=== PATIENT | male | born 1995 | race Hispanic/Latino ===

== ENCOUNTER 2024-06-14 08:37 | Emergency (ER) | payer SELFPAY ==
[~2024-06-14] VITALS: Ht 162.6 cm; Wt 68.0 kg
[2024-06-14] MEDS ORDERED: LIDOcaine HCl 1% (Local Anesth.) 20 ML VIAL STI STA (08:44)
[2024-06-14 08:45] VITALS: BP 150/94
[2024-06-14] MEDS ORDERED: Diph, Acellular Pertussis, Tet 0.5 ML/VIAL (Tdap) SDV IM ONE (08:45)
[2024-06-14] MEDS ORDERED: POVIDONE IODINE 0.5 OZ/BTL TOP ONE (08:45)
[2024-06-14 09:00] VITALS: BP 135/94
[2024-06-14 09:15] VITALS: BP 133/87
[2024-06-14] MEDS ORDERED: CEPHALEXIN500 M1 PO (09:21)
[2024-06-14 09:37] VITALS: BP 133/87
== END 2024-06-14 10:04 | disposition home or self-care (01) | DRG 605 ==
LOC: ED 08:37
PROC: 0HQFXZZ Repair Right Hand Skin, External Approach (ICD-10-PCS; principal; 2024-06-14)
DX: S61.210A Laceration without foreign body of right index finger without damage to nail, initial encounter (principal); W27.0XXA Contact with workbench tool, initial encounter; Y92.009 Unspecified place in unspecified non-institutional (private) residence as the place of occurrence of the external cause